=== PATIENT | male | born 1990 ===

== ENCOUNTER 2023-02-06 20:31 | Emergency (ER) | payer MEDICAID ==
[2023-02-06 21:13] LABS: BASOPHILS PERCENT AUTO 0.3 % (0.0-1.0); EOSINOPHILS PERCENT AUTO 0.3 % (1.0-3.0); HEMOGLOBIN 16.5 g/dL (14.0-18.0); LYMPHOCYTES PERCENT AUTO 37.1 % (20.5-50.1); MEAN CORPUSCULAR HEMOGLOBIN 31.9 pg (27.0-34.0); MEAN CORPUSCULAR HGB CONC 35.9 g/dL (33.0-35.0); MEAN CORPUSCULAR VOLUME 88.8 fL (80-100); MONOCYTES PERCENT AUTO 5.2 % (2-8); NEUTROPHILS PERCENT AUTO 57.1 % (42.2-75.2); PLATELET COUNT,PLT 183 10^3/uL (150-450); RED BLOOD CELL COUNT 5.18 10^6/uL (4.6-6.2); WHITE BLOOD CELL COUNT,WBC 7.2 10^3/uL (5.0-10.0)
[2023-02-06 21:31] LABS: A/G RATIO 0.9; ALANINE AMINOTRANSFERASE,ALT 77 U/L (16-63); ALKALINE PHOSPHATASE 120 U/L (46-116); ANION GAP 17.9 mEq/L (7-13); ASPARTATE AMNIOTRANSFERASE,AST 140 U/L (15-37); BILIRUBIN TOTAL 0.5 mg/dL (0.2-1.0); BLOOD UREA NITROGEN,BUN 9 mg/dL (7-18); BUN/CREATININE RATIO 8.9 (No establ ref range); CALCIUM 9.2 mg/dL (8.5-10.1); CARBON DIOXIDE,CO2 28 mmol/L (21-32); CHLORIDE,CL 95 mmol/L (98-107); CREATININE 1.01 mg/dL (0.70-1.30); MAGNESIUM 2.1 mg/dL (1.8-2.4); POTASSIUM,K 4.9 mmol/L (3.5-5.1); PROTEIN TOTAL,TP 8.7 g/dL (6.4-8.2); SODIUM,NA 136 mmol/L (136-145)
[2023-02-06 21:34] LABS: ESTIMATED GFR 101 mL/min (>=60); GLUCOSE RANDOM 434 mg/dL (70-99)
== END 2023-02-06 22:00 | disposition left against medical advice (07) ==
LOC: DL.ED 20:31
DX: Z53.21 Procedure and treatment not carried out due to patient leaving prior to being seen by health care provider (principal)
CPT/HCPCS: 36415; 80053; 82947; 83735; 85025

== ENCOUNTER 2023-02-09 13:00 | Emergency (ER) | payer MEDICAID ==
[2023-02-09] MEDS ORDERED: Sodium Chloride 0.9% 10 ML Syringe FLUSH PRN (14:23)
[2023-02-09 14:45] LABS: O2 DELIVERY DEVICE ROOM AIR
[2023-02-09 14:46] LABS: BASE EXCESS ARTERIAL -5 mmol/L ((-2)-(+3)); BICARBONATE,ARTERIAL 19.1 mmol/L (22-26); O2 SATURATION ARTERIAL 95 % (95-100); PCO2 ARTERIAL 34 mmHg (35-45); PH,ARTERIAL 7.37 (7.35-7.45); PO2 ARTERIAL 91 mmHg (70-100)
[2023-02-09 14:47] LABS: ALLEN TEST PERFORMED
[2023-02-09 14:59] LABS: BASOPHILS PERCENT AUTO 0.2 % (0.0-1.0); HEMATOCRIT 42.7 % (40.0-54.0); HEMOGLOBIN 15.1 g/dL (14.0-18.0); LYMPHOCYTES PERCENT AUTO 10.3 % (20.5-50.1); MEAN CORPUSCULAR HEMOGLOBIN 31.8 pg (27.0-34.0); MEAN CORPUSCULAR HGB CONC 35.4 g/dL (33.0-35.0); MEAN CORPUSCULAR VOLUME 89.9 fL (80-100); MONOCYTES PERCENT AUTO 3.9 % (2-8); NEUTROPHILS PERCENT AUTO 85.6 % (42.2-75.2); PLATELET COUNT,PLT 132 10^3/uL (150-450); RED BLOOD CELL COUNT 4.75 10^6/uL (4.6-6.2); WHITE BLOOD CELL COUNT,WBC 8.5 10^3/uL (5.0-10.0)
[2023-02-09 15:18] LABS: INR 0.8 (0.9-1.2); PROTHROMBIN TIME 8.7 SEC (9.0-12.0); PTT,PARTIAL THROMBOPLSTIN TIME 21.7 SEC (22.0-34.0)
[2023-02-09] MEDS ORDERED: Sodium Chloride 0.9% 1,000 ML IV ONE ×4 (15:18→18:55)
[2023-02-09 15:21] LABS: KETONES,BLOOD NEGATIVE
[2023-02-09 15:22] LABS: A/G RATIO 0.9; ALANINE AMINOTRANSFERASE,ALT 146 U/L (16-63); ALBUMIN 3.6 g/dL (3.4-5.0); ALKALINE PHOSPHATASE 103 U/L (46-116); AMYLASE 60 U/L (25-115); ANION GAP 21.3 mEq/L (7-13); ASPARTATE AMNIOTRANSFERASE,AST 245 U/L (15-37); BILIRUBIN TOTAL 0.8 mg/dL (0.2-1.0); BLOOD UREA NITROGEN,BUN 15 mg/dL (7-18); BUN/CREATININE RATIO 17.2 (No establ ref range); CALCIUM 8.5 mg/dL (8.5-10.1); CARBON DIOXIDE,CO2 22 mmol/L (21-32); CHLORIDE,CL 92 mmol/L (98-107); CREATININE 0.87 mg/dL (0.70-1.30); EST CRCL DRUG DOSING (CG) 108.01 mL/min; ETHANOL BLOOD MEDICAL 101 mg/dL (0); GLUCOSE RANDOM 199 mg/dL (70-99); LIPASE 81 U/L (73-393); MAGNESIUM 1.7 mg/dL (1.8-2.4); PHOSPHORUS 3.3 mg/dL (2.6-4.7); POTASSIUM,K 4.3 mmol/L (3.5-5.1); PROTEIN TOTAL,TP 7.7 g/dL (6.4-8.2); SODIUM,NA 131 mmol/L (136-145)
[2023-02-09 15:24] LABS: ESTIMATED GFR 117 mL/min (>=60)
[2023-02-09 15:25] LABS: C-REACTIVE PROTEIN < 0.2 mg/dL (0.0-0.9); LACTIC ACID 5.3 mmol/L (0.4-2.0)
[2023-02-09 15:35] LABS: APPEARANCE,URINE CLEAR (CLEAR); BILIRUBIN,URINE NEGATIVE (NEGATIVE); COLOR,URINE YELLOW (YELLOW); GLUCOSE,URINE 500 (NEGATIVE); KETONES,URINE 40 (NEGATIVE); LEUKOCYTE ESTERASE,URINE NEGATIVE (NEGATIVE); NITRITE,URINE NEGATIVE (NEGATIVE); OCCULT BLOOD,URINE SMALL (NEGATIVE); PROTEIN,URINE 100 (NEGATIVE); UROBILINOGEN,URINE 0.2 mg/dL (0.2-1.0)
[2023-02-09 15:38] LABS: AMPHETAMINES,URINE NEGATIVE (NEGATIVE); BARBITURATES,URINE NEGATIVE (NEGATIVE); BENZODIAZEPINE,URINE POSITIVE (NEGATIVE); MDMA (ECSTASY), URINE NEGATIVE (NEGATIVE); METHADONE,URINE NEGATIVE (NEGATIVE); METHAMPHETAMINES,URINE NEGATIVE (NEGATIVE); OPIATES,URINE NEGATIVE (NEGATIVE); OXYCODONE,URINE NEGATIVE (NEGATIVE); PHENCYCLIDINE,URINE NEGATIVE (NEGATIVE); TCA,URINE NEGATIVE (NEGATIVE)
[2023-02-09] MEDS ORDERED: Iopamidol 612 MG/ML 100 ML Bottle IVPUSH ONE (15:48)
[2023-02-09 16:22] LABS: HYALINE CASTS,URINE MODERATE; MUCUS,URINE MODERATE /LPF (NOT SEEN)
[2023-02-09 16:23] LABS: EPITHELIAL CELLS,URINE MODERATE /HPF (NOT SEEN); FINE GRANULAR CASTS,URINE MODERATE /LPF (NOT SEEN); GRANULAR CASTS,URINE FEW
[2023-02-09 16:24] LABS: BACTERIA,URINE FEW /HPF (0-FEW/HPF)
[2023-02-09 16:26] LABS: RBC,URINE 0-5 /HPF (0-5); WBC,URINE 0-5 /HPF (0-5/HPF)
[2023-02-09 19:24] LABS: ANION GAP 22.2 mEq/L (7-13); BILIRUBIN TOTAL 1.1 mg/dL (0.2-1.0); BUN/CREATININE RATIO 19.1 (No establ ref range); CALCIUM 7.5 mg/dL (8.5-10.1); CREATININE 0.68 mg/dL (0.70-1.30); EST CRCL DRUG DOSING (CG) 138.19 mL/min; POTASSIUM,K 5.2 mmol/L (3.5-5.1); PROTEIN TOTAL,TP 6.7 g/dL (6.4-8.2)
[2023-02-09 19:27] LABS: A/G RATIO 0.81
== END 2023-02-09 20:35 | disposition home or self-care (01) ==
LOC: DL.ED 13:00
DX: R10.9 Unspecified abdominal pain (principal); E86.0 Dehydration; E11.9 Type 2 diabetes mellitus without complications
CPT/HCPCS: 36415; 36600; 71045; 74177; 80053; 80305-QW; 80307; 81001; 82009; 82150; 82803; 82947; 83605; 83690; 83735; 84100; 84145; 84484; 85025; 85610; 85730; 86140; 87040; 93005; 96360; 96361; 99284-25; J3490; J7030; Q9967

== ENCOUNTER 2023-02-22 03:08 | Emergency (ER) | payer OTHER ==
[2023-02-22] MEDS ORDERED: fentaNYL 100 MCG/2 ML SDV IVPUSH ONE (03:09)
[2023-02-22] MEDS ORDERED: fentaNYL 100 MCG/2 ML SDV ONE (03:20)
[2023-02-22] MEDS ORDERED: Diphtheria,Pertussis(Acell),Tetanus Vaccine 0.5 ML Syringe ONE (03:21)
[2023-02-22 03:57] LABS: BASOPHILS PERCENT AUTO 0.2 % (0.0-1.0); EOSINOPHILS PERCENT AUTO 0.1 % (1.0-3.0); HEMATOCRIT 44.9 % (40.0-54.0); HEMOGLOBIN 15.7 g/dL (14.0-18.0); LYMPHOCYTES PERCENT AUTO 28.2 % (20.5-50.1); MEAN CORPUSCULAR HEMOGLOBIN 32.2 pg (27.0-34.0); MEAN CORPUSCULAR VOLUME 92.2 fL (80-100); MONOCYTES PERCENT AUTO 4.1 % (2-8); NEUTROPHILS PERCENT AUTO 67.4 % (42.2-75.2); PLATELET COUNT,PLT 219 10^3/uL (150-450); RED BLOOD CELL COUNT 4.87 10^6/uL (4.6-6.2); WHITE BLOOD CELL COUNT,WBC 12.1 10^3/uL (5.0-10.0)
[2023-02-22 04:17] LABS: A/G RATIO 0.8; ALANINE AMINOTRANSFERASE,ALT 200 U/L (16-63); ALBUMIN 3.9 g/dL (3.4-5.0); ALKALINE PHOSPHATASE 139 U/L (46-116); ANION GAP 22.1 mEq/L (7-13); ASPARTATE AMNIOTRANSFERASE,AST 687 U/L (15-37); BILIRUBIN TOTAL 0.5 mg/dL (0.2-1.0); BLOOD UREA NITROGEN,BUN 8 mg/dL (7-18); BUN/CREATININE RATIO 7.3 (No establ ref range); CALCIUM 8.8 mg/dL (8.5-10.1); CARBON DIOXIDE,CO2 24 mmol/L (21-32); CHLORIDE,CL 95 mmol/L (98-107); CREATININE 1.09 mg/dL (0.70-1.30); POTASSIUM,K 4.1 mmol/L (3.5-5.1); PROTEIN TOTAL,TP 8.7 g/dL (6.4-8.2); SODIUM,NA 137 mmol/L (136-145)
[2023-02-22 04:22] LABS: ESTIMATED GFR 92 mL/min (>=60); ETHANOL BLOOD MEDICAL 358 mg/dL (0); GLUCOSE RANDOM 459 mg/dL (70-99)
[2023-02-22] MEDS ORDERED: Iopamidol 612 MG/ML 100 ML Bottle IVPUSH ONE (06:10)
== END 2023-02-22 04:57 ==
LOC: EDBD → MERGE 03:08 → DL.ED 03:08
DX: S06.0X1A Concussion with loss of consciousness of 30 minutes or less, initial encounter (principal); S01.81XA Laceration without foreign body of other part of head, initial encounter; S22.43XA Multiple fractures of ribs, bilateral, initial encounter for closed fracture; S27.0XXA Traumatic pneumothorax, initial encounter; S36.899A Unspecified injury of other intra-abdominal organs, initial encounter; S12.600A Unspecified displaced fracture of seventh cervical vertebra, initial encounter for closed fracture; Z23 Encounter for immunization; V49.10XA Passenger injured in collision with unspecified motor vehicles in nontraffic accident, initial encounter; Y92.410 Unspecified street and highway as the place of occurrence of the external cause
CPT/HCPCS: 36415; 70450; 70486; 71260; 72125; 74177; 80053; 80307; 85025; 86850; 86870; 86900; 86901; 90471; 96374; 99285; Q9967; 72126; J3010

== ENCOUNTER 2023-10-13 12:35 | Emergency (ER) | payer MEDICAID ==
[2023-10-13 12:53] LABS: BASOPHILS PERCENT AUTO 0.8 % (0.0-1.0); HEMATOCRIT 44.8 % (40.0-54.0); HEMOGLOBIN 14.7 g/dL (14.0-18.0); LYMPHOCYTES PERCENT AUTO 2.7 % (20.5-50.1); MEAN CORPUSCULAR HGB CONC 32.8 g/dL (33.0-35.0); MEAN CORPUSCULAR VOLUME 97.6 fL (80-100); MONOCYTES PERCENT AUTO 5.8 % (2-8); NEUTROPHILS PERCENT AUTO 90.7 % (42.2-75.2); PLATELET COUNT,PLT 132 10^3/uL (150-450); RED BLOOD CELL COUNT 4.59 10^6/uL (4.6-6.2); WHITE BLOOD CELL COUNT,WBC 11.6 10^3/uL (5.0-10.0)
[2023-10-13 13:10] LABS: ETHANOL BLOOD MEDICAL < 3 mg/dL ({0, null})
[2023-10-13 13:15] LABS: A/G RATIO 0.8; ALANINE AMINOTRANSFERASE,ALT 61 U/L (16-63); ALBUMIN 3.9 g/dL (3.4-5.0); ALKALINE PHOSPHATASE 151 U/L (46-116); ANION GAP 45.2 mEq/L (7-13); ASPARTATE AMNIOTRANSFERASE,AST 23 U/L (15-37); BILIRUBIN TOTAL 0.9 mg/dL (0.2-1.0); BLOOD UREA NITROGEN,BUN 41 mg/dL (7-18); BUN/CREATININE RATIO 22.4 (No establ ref range); CALCIUM 8.5 mg/dL (8.5-10.1); CHLORIDE,CL 68 mmol/L (98-107); CREATININE 1.83 mg/dL (0.70-1.30); POTASSIUM,K 5.2 mmol/L (3.5-5.1); PROTEIN TOTAL,TP 8.5 g/dL (6.4-8.2)
[2023-10-13 13:17] LABS: CARBON DIOXIDE,CO2 5 mmol/L (21-32); SODIUM,NA 113 mmol/L (136-145)
[2023-10-13 13:18] LABS: ESTIMATED GFR 49 mL/min (>=60); GLUCOSE RANDOM 811 mg/dL (70-99)
[2023-10-13] MEDS: Sodium Chloride 0.9% 10 ML Syringe FLUSH PRN ×2 (13:20)
[2023-10-13] MEDS: Sodium Chloride 0.9% 1,000 ML IV ONE (13:20)
[2023-10-13 13:23] LABS: KETONES,BLOOD MODERATE-40 mg/dL
[2023-10-13] MEDS ORDERED: 50% Dextrose in Water 50 ML Syringe IVPUSH PRN (13:25)
[2023-10-13] MEDS ORDERED: Glucagon,Human Recombinant 1 MG Vial IM PRN (13:25)
[2023-10-13] MEDS: Sodium Chloride 0.9% 1,000 ML IV SCH ×2 (13:30→14:45)
[2023-10-13] MEDS: Insulin Regular, Human 100 Units/ML 3 ML Vial IV ONE (13:35)
[2023-10-13 13:45] LABS: O2 DELIVERY DEVICE ROOM AIR
[2023-10-13 13:47] LABS: BASE EXCESS VENOUS -27.1 mmol/l ({null, (-2)-(+3)}); BICARBONATE,VENOUS 4 mmol/l (19-25); O2 SATURATION VENOUS 83.6 % (60-80); PO2 VENOUS 62 mmHg (35-42)
[2023-10-13 13:50] LABS: PCO2 VENOUS 15 mmHg (41-51); PH,VENOUS 7.02 (7.31-7.41)
[2023-10-13] MEDS: Sodium Chloride 0.45% 1,000 ML IV SCH (14:00)
[2023-10-13] MEDS: NS with KCl 40mEq 1,000 ML IV SCH (14:04)
[2023-10-13 14:26] LABS: APPEARANCE,URINE CLEAR (CLEAR); BILIRUBIN,URINE NEGATIVE (NEGATIVE); COLOR,URINE YELLOW (YELLOW); GLUCOSE,URINE 500 (NEGATIVE); KETONES,URINE 80 (NEGATIVE); LEUKOCYTE ESTERASE,URINE NEGATIVE (NEGATIVE); NITRITE,URINE NEGATIVE (NEGATIVE); OCCULT BLOOD,URINE SMALL (NEGATIVE); PH,URINE 5.5 (5.0-9.0); PROTEIN,URINE 30 (NEGATIVE); UROBILINOGEN,URINE 0.2 mg/dL (0.2-1.0)
[2023-10-13 14:28] LABS: AMPHETAMINES,URINE NEGATIVE (NEGATIVE); BARBITURATES,URINE NEGATIVE (NEGATIVE); BENZODIAZEPINE,URINE NEGATIVE (NEGATIVE); MDMA (ECSTASY), URINE NEGATIVE (NEGATIVE); METHADONE,URINE NEGATIVE (NEGATIVE); METHAMPHETAMINES,URINE NEGATIVE (NEGATIVE); OPIATES,URINE NEGATIVE (NEGATIVE); OXYCODONE,URINE NEGATIVE (NEGATIVE); PHENCYCLIDINE,URINE NEGATIVE (NEGATIVE); TCA,URINE NEGATIVE (NEGATIVE)
[2023-10-13 14:50] LABS: O2 DELIVERY DEVICE ROOM AIR
[2023-10-13 14:54] LABS: BASE EXCESS VENOUS -24.9 mmol/l ({null, (-2)-(+3)}); BICARBONATE,VENOUS 5 mmol/l (19-25); O2 SATURATION VENOUS 56.2 % (60-80); PO2 VENOUS 34 mmHg (35-42)
[2023-10-13 14:57] LABS: PCO2 VENOUS 17 mmHg (41-51); PH,VENOUS 7.07 (7.31-7.41)
[2023-10-13 15:00] LABS: WBC,URINE 0-5 /HPF (0-5/HPF)
[2023-10-13 15:01] LABS: BACTERIA,URINE RARE /HPF ({null, 0-FEW/HPF}); EPITHELIAL CELLS,URINE RARE /HPF (NOT SEEN); MUCUS,URINE FEW /LPF (NOT SEEN); RBC,URINE 0-5 /HPF (0-5)
[2023-10-13 15:05] LABS: BLOOD UREA NITROGEN,BUN 34 mg/dL (7-18); CALCIUM 6.4 mg/dL (8.5-10.1); CARBON DIOXIDE,CO2 7 mmol/L (21-32); CREATININE 1.28 mg/dL (0.70-1.30); GLUCOSE RANDOM 374 mg/dL (70-99)
[2023-10-13 15:33] LABS: ANION GAP 35.5 mEq/L (7-13); CHLORIDE,CL 87 mmol/L (98-107); POTASSIUM,K 4.5 mmol/L (3.5-5.1); SODIUM,NA 125 mmol/L (136-145)
[2023-10-13 15:34] LABS: ESTIMATED GFR 75 mL/min (>=60)
== END 2023-10-13 15:36 ==
LOC: DL.ED 12:35
DX: E11.10 Type 2 diabetes mellitus with ketoacidosis without coma (principal); Z79.4 Long term (current) use of insulin; Z79.84 Long term (current) use of oral hypoglycemic drugs
CPT/HCPCS: 36415; 71045; 80048; 80053; 80305-QW; 80307; 81001; 82009; 82803; 82947; 85025; 87040; 93005; 93010; 96361; 96365; 96366; 99285; 99285-25; J1815-GY; J3480; J3490; J7030